=== PATIENT | male | born 1950 | race African-American/Black ===

== ENCOUNTER 2019-11-07 15:42 | Emergency (ER) | payer MEDICARE ==
[~2019-11-07] VITALS: Ht 167.6 cm; Wt 72.6 kg
[~2019-11-07 15:42] MED LIST: AMLODIPINE BESYL5 MG ORAL; ASPIR 8181 MG ORAL; DOCUSATE SODIU100 MG ORAL; GABAPENTIN400 MG ORAL; LIPITOR80 MG ORAL; QUETIAPINE FUM400 MG ORAL; SINEQUAN25 MG ORAL; TEMAZEPAM22.5 MG PO
[2019-11-07] MEDS ORDERED: BENAZEPRIL HCL10 MG ORAL (16:06)
[2019-11-07] MEDS ORDERED: OMEPRAZOLE20 M2 ORAL (16:06)
--- NOTE | 2019-11-07 16:09 | NUR ---
ED Nurse Note: pt states hes been having "dizzy spells since this morning". pt denies vomiting/diarrhea, but has had episodes of nausea
[2019-11-07 16:10] VITALS: BP 129/90
--- NOTE | 2019-11-07 16:26 | Emergency Room Report ---
History of Present Illness General Chief Complaint: Dizziness Source: Patient Present Illness HPI 69-year-old male history of hypertension, CVA in the past presents with dizziness when he tilts his head to the right, started at 4 AM, he states the room is spinning, like he is on a boat, severity is severe lasting a few seconds resolves when he is still, endorses some nausea no chest pain no shortness of breath no dyspnea on exertion no abdominal pain patient presents for evaluation Allergies: Coded Allergies: No Known Allergies (Unverified , 10/05/19) Patient History Past Medical History: see triage record Reviewed Nursing Documentation: PMH: Agreed; PSxH: Agreed Nursing Documentation-PMH Past Medical History: No History, Except For Hx Cardiac Problems: Yes Hx Hypertension: Yes Hx Asthma: No Hx COPD: No Hx Diabetes: No Hx Cancer: No Hx Gastrointestinal Problems: Yes History Of Psychiatric Problem: Yes - schizophrenic Hx Neurological Problems: No Review of Systems All Other Systems: negative except mentioned in HPI Physical Exam Vital Signs Date Time Temp Pulse Resp B/P (MAP) Pulse Ox O2 Delivery O2 Flow Rate FiO2 11/07/19 15:57 98.4 82 20 129/90 (103) 95 Room Air Sp02 EP Interpretation: reviewed, normal General Appearance: well appearing, no apparent distress, alert Head: normocephalic, atraumatic Eyes: bilateral eye PERRL, bilateral eye EOMI ENT: uvula midline, moist mucus membranes Neck: supple, thyroid normal, supple/symm/no masses Respiratory: lungs clear, no respiratory distress, no retraction, no accessory muscle use Cardiovascular #1: normal peripheral pulses, regular rate, rhythm, no edema, no gallop, no murmur Gastrointestinal: non tender, soft, no guarding, no rebound Musculoskeletal: normal inspection Neurologic: alert, motor strength/tone normal, director product III-XII nml as tested, oriented x3, cerebellar normal, speech normal, normal gait, no pronator, other - Romberg negative, finger-nose intact, fatigable nystagmus to the right, Jeff- Hallpike positive Psychiatric: mood/affect normal Skin: no rash, warm/dry Medical Decision Making Diagnostic Impression: Primary Impression: Dizziness Additional Impression: BPPV (benign paroxysmal positional vertigo) Qualified Codes: H81.11 - Benign paroxysmal vertigo, right ear ER Course 69-year-old male history of hypertension, presents with dizziness that is violent in nature aggravated with movement and position differential diagnosis includes BPV, Mnire's, stroke Cranial nerves intact, fatigable nystagmus, [place]-Hallpike positive, patient improved with meclizine additionally patient counseled on how to utilize the Alison maneuver Reevaluation 5:18 PM, dizziness has significantly improved disposition home with return precautions follow-up with PCP CT/MRI/US Diagnostic Results CT/MRI/US Diagnostic Results : Impression Procedure: CT Head no Contrast Indication: Headache Technique: Contiguous 5 mm thick transaxial imaging of the head obtained in a Siemens Sensation [address] scanner. Soft tissue and bone windows generated. Automatic Exposure Control was utilized. Total Dose length Product (DLP): 1179.[address] Dose Index Volume (CTDIvol): 53.4 mGy Comparison: none Findings: There is mild prominence of the ventricles, basal cisterns, and cerebral sulci consistent with atrophy. Mild, nonspecific, white matter hypoattenuation is noted throughout the brain consistent with chronic small vessel disease. There is no midline shift, edema, acute hemorrhage, mass effect, or abnormal extra-axial fluid collections. Bones are unremarkable. There is opacification of the ethmoid sinus left worse than right consistent with sinusitis Impression: No acute intracranial bleed, mass effect or edema. Mild atrophy of the brain. Nonspecific white matter hypoattenuation probably due to chronic small vessel disease. Sinusitis The CT scanner at [facility] is accredited by the [employer] and the scans are performed using dose optimization techniques as appropriate to a performed exam including Automatic Exposure control. Dictated By: Quinn Gutierrez MD Electronically Signed By: Quinn Gutierrez MD Signed Date/Time 11/07/19 [id number] CC: Rafal Johns MD Last Vital Signs Date Time Temp Pulse Resp B/P (MAP) Pulse Ox O2 Delivery O2 Flow Rate FiO2 11/07/19 16:10 98.4 82 20 129/90 95 Room Air Disposition: HOME, SELF-CARE Condition: Stable Scripts Meclizine Hcl* (MECLIZINE*) 25 Mg Tablet 25 MG ORAL THREE TIMES A DAY PRN for for dizziness, #21 TAB Prov: Rafal Johns MD 11/07/19 Referrals: [facility] Quinn Farris [facility]. [facility] Patient Instructions: Benign Positional Vertigo, Vertigo Additional Instructions: The patient was provided with discharge instructions, notified to follow-up with a primary care doctor and or specialist in the next 24-48 hours, and to return to the ED if they have worsening of their symptoms. Please note that this report is being documented using [employer] technology. This can lead to erroneous entry secondary to incorrect interpretation by the dictating instrument. Rafal Johns MD Nov 07, 2019 16:26
[2019-11-07] MEDS ORDERED: Meclizine 25mg tab ORAL ONE (16:30)
--- NOTE | 2019-11-07 17:00 | Diagnostic Imaging Report ---
Indication: Headache Technique: Contiguous 5 mm thick transaxial imaging of the head obtained in a Siemens Sensation [address] scanner. Soft tissue and bone windows generated. Automatic Exposure Control was utilized. Total Dose length Product (DLP): 1179.[address] Dose Index Volume (CTDIvol): 53.4 mGy Comparison: none Findings: There is mild prominence of the ventricles, basal cisterns, and cerebral sulci consistent with atrophy. Mild, nonspecific, white matter hypoattenuation is noted throughout the brain consistent with chronic small vessel disease. There is no midline shift, edema, acute hemorrhage, mass effect, or abnormal extra-axial fluid collections. Bones are unremarkable. There is opacification of the ethmoid sinus left worse than right consistent with sinusitis Impression: No acute intracranial bleed, mass effect or edema. Mild atrophy of the brain. Nonspecific white matter hypoattenuation probably due to chronic small vessel disease. Sinusitis The CT scanner at [facility] is accredited by the [employer] and the scans are performed using dose optimization techniques as appropriate to a performed exam including Automatic Exposure control.
[2019-11-07] MEDS ORDERED: MECLIZINE HCL25 MG ORAL (17:19)
[2019-11-07 17:20] VITALS: BP 124/84
--- NOTE | 2019-11-07 17:21 | NUR ---
ER DISCHARGE NOTE: Patient is cleared to be discharged per ERMD, pt is aox4, on room air, with stable vital signs. pt was given dc and prescription instructions, pt was able to verbalize understanding, pt id band removed. pt is able to ambulate with steady gait. pt took all belongings.
== END 2019-11-07 17:20 | disposition home or self-care (01) ==
LOC: EMR 17:16
DX: H81.11 Benign paroxysmal vertigo, right ear (principal); I10 Essential (primary) hypertension; R51 Headache; F20.9 Schizophrenia, unspecified; G31.9 Degenerative disease of nervous system, unspecified; J32.9 Chronic sinusitis, unspecified; Z86.73 Personal history of transient ischemic attack (TIA), and cerebral infarction without residual deficits
CPT/HCPCS: 70450; 99284

== ENCOUNTER 2020-01-29 15:35 | Emergency (ER) | payer MEDICARE ==
[~2020-01-29] VITALS: Ht 167.6 cm; Wt 72.6 kg
[~2020-01-29 15:35] MED LIST changes: +BENAZEPRIL HCL10 MG ORAL; +MECLIZINE HCL25 MG ORAL; +OMEPRAZOLE20 M2 ORAL
--- NOTE | 2020-01-29 15:55 | NUR ---
ED Nurse Note: Pt ambulated to ED from home d/t abdominal pain and no bowel movement x 7 days. Per pt, he already took miralax but ineffective. Pt is AOx4, calm and cooperative. VSS, on RA, afebrile on triage. Placed on bed and gown, ERMD at bedside. Pt denies any recent nausea, dizziness nor diarrhea.
[2020-01-29] MEDS ORDERED: Omnipaque-300 100ml vial INJ PRN (16:00)
[2020-01-29 16:16] VITALS: BP 104/49
[2020-01-29 16:28] LABS: BASOPHILS % (AUTO) 2.1 % (0.0-2.0); EOSINOPHILS % (AUTO) 5.7 % (0.0-3.0); HEMATOCRIT 42.1 % (42.0-52.0); HEMOGLOBIN 13.6 G/DL (14.2-18.0); LYMPHOCYTES % (AUTO) 37.1 % (20.0-45.0); MEAN CORPUSCULAR VOLUME 96 FL (80-99); MONOCYTES % (AUTO) 6.9 % (1.0-10.0); NEUTROPHILS % (AUTO) 48.2 % (45.0-75.0); PLATELET COUNT 185 K/UL (150-450); RED BLOOD COUNT 4.39 M/UL (4.70-6.10); RED CELL DISTRIBUTION WIDTH 12.7 % (11.6-14.8); WHITE BLOOD COUNT 4.8 K/UL (4.8-10.8)
--- NOTE | 2020-01-29 16:29 | Emergency Room Report ---
History of Present Illness General Chief Complaint: Abdominal Pain Source: Patient Present Illness HPI 69-year-old male presents for abdominal pain and distention. States he may have a bowel obstruction. Has had no bowel movement for 7 days. Took MiraLAX without effect. States he has had multiple abdominal surgeries and has had previous bowel obstructions. Pain is dull, 5 out of 10, nonradiating. Denies nausea or vomiting. Denies fevers or chills. Denies chest pain. No other aggravating relieving factors. Denies any other associated symptoms Allergies: Coded Allergies: No Known Allergies (Unverified , 10/05/19) COVID-19 Screening Contact w/high risk pt: No Recent Travel to affected area: No Experienced COVID-19 symptoms?: No Patient History Past Medical History: HTN Past Surgical History: appy, other - SBO Pertinent Family History: none Social History: Denies: smoking, alcohol use, drug use Immunizations: UTD Reviewed Nursing Documentation: PMH: Agreed; PSxH: Agreed Nursing Documentation-PMH Past Medical History: No History, Except For Hx Cardiac Problems: Yes Hx Hypertension: Yes Hx Asthma: No Hx COPD: No Hx Diabetes: No Hx Cancer: No Hx Gastrointestinal Problems: Yes - SBO, surgery Hx Neurological Problems: No Review of Systems All Other Systems: negative except mentioned in HPI Physical Exam Vital Signs Date Time Temp Pulse Resp B/P (MAP) Pulse Ox O2 Delivery O2 Flow Rate FiO2 01/29/20 15:44 99.7 113 18 104/49 (67) 97 Sp02 EP Interpretation: reviewed, normal General Appearance: no apparent distress, alert, GCS 15, non-toxic Head: normocephalic, atraumatic Eyes: bilateral eye normal inspection, bilateral eye PERRL ENT: hearing grossly normal, normal pharynx, no angioedema, normal voice Neck: full range of motion, supple/symm/no masses Respiratory: chest non-tender, lungs clear, normal breath sounds, speaking full sentences Cardiovascular #1: regular rate, rhythm, no edema Cardiovascular #2: 2+ carotid (R), 2+ carotid (L), 2+ radial (R), 2+ radial (L) , 2+ dorsalis pedis (R), 2+ dorsalis pedis (L) Gastrointestinal: normal bowel sounds, no guarding, no rebound, distended, other - surgical scar abdomen Rectal: deferred Genitourinary: normal inspection, no CVA tenderness Musculoskeletal: back normal, normal range of motion, gait/station normal, non- tender Neurologic: alert, motor strength/tone normal, oriented x3, sensory intact, responsive, speech normal Psychiatric: judgement/insight normal, memory normal, mood/affect normal, no suicidal/homicidal ideation Reflexes: 3+ bicep (R), 3+ bicep (L), 3+ tricep (R), 3+ tricep (L), 3+ knee (R) , 3+ knee (L) Skin: no rash Lymphatic: no adenopathy Medical Decision Making Diagnostic Impression: Primary Impression: Constipation Qualified Codes: K59.00 - Constipation, unspecified ER Course Hospital Course 69-year-old M presents to ED with no BM x 7 days. h/o bowel obstruction Differential diagnosis includes-appendicitis, cholecystitis, small bowel obstruction, gastritis, Clinical course Patient placed on stretcher. After initial history and physical I ordered labs , IV fluids, CT scan Labs - no leukocytosis, electrolytes ok, LFTs normal CT scan shows thickened fecal impaction, no evidence of bowel obstruction. Ileus versus enteritis I discussed findings with patient. Vitals stable. Labs unremarkable. Resting comfortably. No vomiting. Tolerating p.o. intake. Safe for discharge for close outpatient follow-up. States he has a PMD I feel this is a highly complex case requiring extensive working including EKG/ Rhythm strip, Xray/CT/US, Blood/urine lab work, repeat exams while in ED, and administration of strong opiates/narcotics for pain control, admission to hospital or close patient follow up. Diagnosis - constipation Stable and discharged to home with Rx Colace, Enema, Mag Citrate. Followup with PMD. Return to ED if symptoms recur or worsen Labs Test 01/29/20 16:00 01/29/20 16:50 White Blood Count 4.8 K/UL (4.8-10.8) Red Blood Count 4.39 M/UL (4.70-6.10) Hemoglobin 13.6 G/DL (14.2-18.0) Hematocrit 42.1 % (42.0-52.0) Mean Corpuscular Volume 96 FL (80-99) Mean Corpuscular Hemoglobin 31.0 PG (27.0-31.0) Mean Corpuscular Hemoglobin Concent 32.3 G/DL (32.0-36.0) Red Cell Distribution Width 12.7 % (11.6-14.8) Platelet Count 185 K/UL (150-450) Mean Platelet Volume 7.7 FL (6.5-10.1) Neutrophils (%) (Auto) 48.2 % (45.0-75.0) Lymphocytes (%) (Auto) 37.1 % (20.0-45.0) Monocytes (%) (Auto) 6.9 % (1.0-10.0) Eosinophils (%) (Auto) 5.7 % (0.0-3.0) Basophils (%) (Auto) 2.1 % (0.0-2.0) Prothrombin Time 10.3 SEC (9.30-11.50) Prothromb Time International Ratio 1.0 (0.9-1.1) Activated Partial Thromboplast Time 26 SEC (23-33) Sodium Level 139 MMOL/L (136-145) Potassium Level 4.2 MMOL/L (3.5-5.1) Chloride Level 103 MMOL/L (98-107) Carbon Dioxide Level 27 MMOL/L (21-32) Anion Gap 9 mmol/L (5-15) Blood Urea Nitrogen 12 mg/dL (7-18) Creatinine 1.1 MG/DL (0.55-1.30) Estimat Glomerular Filtration Rate > 60 mL/min (>60) Glucose Level 100 MG/DL (74-106) Calcium Level 9.1 MG/DL (8.5-10.1) Total Bilirubin 0.4 MG/DL (0.2-1.0) Aspartate Amino Transf (AST/SGOT) 32 U/L (15-37) Alanine Aminotransferase (ALT/SGPT) 30 U/L (12-78) Alkaline Phosphatase 113 U/L (46-116) Total Protein 6.8 G/DL (6.4-8.2) Albumin 3.8 G/DL (3.4-5.0) Globulin 3.0 g/dL Albumin/Globulin Ratio 1.3 (1.0-2.7) Lipase 101 U/L (73-393) Urine Color Pale yellow Urine Appearance Clear Urine pH 6 (4.5-8.0) Urine Specific [place] 1.010 (1.005-1.035) Urine Protein Negative (NEGATIVE) Urine Glucose (UA) Negative (NEGATIVE) Urine Ketones Negative (NEGATIVE) Urine Blood 3+ (NEGATIVE) Urine Nitrite Negative (NEGATIVE) Urine Bilirubin Negative (NEGATIVE) Urine Urobilinogen Normal MG/DL (0.0-1.0) Urine Leukocyte Esterase 2+ (NEGATIVE) Urine RBC 2-4 /HPF (0 - 0) Urine WBC 0-2 /HPF (0 - 0) Urine Squamous Epithelial Cells None /LPF (NONE/OCC) Urine Bacteria None /HPF (NONE) CT/MRI/US Diagnostic Results CT/MRI/US Diagnostic Results : Imaging Test Ordered: CT A/P Impression FINDINGS: Lung bases: Mild dependent atelectasis bilaterally. Heart: Borderline size of the heart. Mediastinum: Small hiatal hernia. Mild prominence of the wall of the distal esophagus may represent esophagitis. ABDOMEN: Liver: Small hypodensities in the liver are too small to definitively characterize. Gallbladder and bile ducts: Unremarkable. No calcified stones. No ductal dilation. Pancreas: Unremarkable. No mass. No ductal dilation. Spleen: Unremarkable. No splenomegaly. Adrenals: Mild nonspecific thickening of the left adrenal gland. Kidneys and ureters: Nonspecific bilateral perinephric fat stranding. Small hypodensities in the kidneys likely represent cysts. No hydronephrosis or obstructing stone. Stomach and bowel: Large amount of stool in the colon may represent constipation. Evaluation of the stomach is limited by underdistention. Hyperdense heterogeneous material in the proximal stomach is nonspecific and may represent ingested material versus blood products. Please correlate clinically. Mildly prominent fluid and gas-filled small bowel loops are nonspecific but may represent enteritis or ileus in the appropriate clinical setting. PELVIS: Appendix: No findings to suggest acute appendicitis. Bladder: Distended bladder. No significant bladder wall thickening or stone. Reproductive: Mild prostatomegaly. ABDOMEN and PELVIS: Intraperitoneal space: Unremarkable. No free air. No significant fluid collection. Bones/joints: Degenerative changes of the spine. Postsurgical changes at L2-3. No acute fracture. No dislocation. Soft tissues: Unremarkable. Vasculature: Mild atherosclerotic changes of the vasculature. No aortic aneurysm or dissection. Lymph nodes: Unremarkable. No enlarged lymph nodes. IMPRESSION: 1. Large amount of stool in the colon may represent constipation. 2. Evaluation of the stomach is limited by underdistention. Hyperdense heterogeneous material in the proximal stomach is nonspecific and may represent ingested material versus blood products. Please correlate clinically. 3. Mildly prominent fluid and gas-filled small bowel loops are nonspecific but may represent enteritis or ileus in the appropriate clinical setting. Last Vital Signs Date Time Temp Pulse Resp B/P (MAP) Pulse Ox O2 Delivery O2 Flow Rate FiO2 01/29/20 16:16 99.7 18 104/49 97 01/29/20 16:16 105 Status: improved Disposition: HOME, SELF-CARE Condition: Stable Scripts Na Phos,M-B/Na Phos,Di-Ba* (FLEET ENEMA*) 133 Ml Enema 133 ML RECTAL DAILY, #133 ML 0 Refills Prov: Randolph Sykes MD 01/29/20 Magnesium Citrate (CITRATE OF MAGNESIA) 296 Ml Solution 150 ML PO DAILY for 2 Days, #296 ML Prov: Randolph Sykes MD 01/29/20 Docusate Sodium* (COLACE*) 100 Mg Capsule 100 MG ORAL THREE TIMES A DAY, #30 CAP Prov: Randolph Sykes MD 01/29/20 Referrals: NON PHYSICIAN (PCP) Randolph Sykes MD January 29, 2020 16:29
[2020-01-29 16:33] LABS: ANION GAP 9 mmol/L (5-15); BLOOD UREA NITROGEN 12 mg/dL (7-18); CALCIUM 9.1 MG/DL (8.5-10.1); CARBON DIOXIDE 27 MMOL/L (21-32); CHLORIDE 103 MMOL/L (98-107); CREATININE 1.1 MG/DL (0.55-1.30); POTASSIUM 4.2 MMOL/L (3.5-5.1); SODIUM 139 MMOL/L (136-145)
[2020-01-29 16:37] LABS: ALANINE AMINOTRANSFERASE 30 U/L (12-78); ALBUMIN 3.8 G/DL (3.4-5.0); ALBUMIN/GLOBULIN RATIO 1.3 (1.0-2.7); ALKALINE PHOSPHATASE 113 U/L (46-116); ASPARTATE AMINO TRANSFERASE 32 U/L (15-37); BILIRUBIN,TOTAL 0.4 MG/DL (0.2-1.0)
--- NOTE | 2020-01-29 16:55 | NUR ---
ED Nurse Note: pt went on CT accompanied by tech
[2020-01-29 17:00] LABS: APPEARANCE,URINE CLEAR; BILIRUBIN, URINE NEGATIVE (NEGATIVE); COLOR,URINE PALE YELLOW; GLUCOSE, URINE (UA) NEGATIVE (NEGATIVE); KETONES,URINE NEGATIVE (NEGATIVE); LEUKOCYTE ESTERASE ,URINE 2+ (NEGATIVE); NITRITE,URINE NEGATIVE (NEGATIVE); PH,URINE 6 (4.5-8.0); PROTEIN,URINE NEGATIVE (NEGATIVE); UROBILINOGEN,URINE NORMAL MG/DL (0.0-1.0)
--- NOTE | 2020-01-29 17:45 | Diagnostic Imaging Report ---
EXAM: CT Abdomen and Pelvis With Intravenous Contrast CLINICAL HISTORY: ABD PAIN TECHNIQUE: Axial computed tomography images of the abdomen and pelvis with intravenous contrast. CTDI is 4.7 mGy and DLP is 245.1 mGy-cm. One or more of the following dose reduction techniques were used: automated exposure control, adjustment of the mA and/or kV according to patient size, use of iterative reconstruction technique. COMPARISON: None FINDINGS: Lung bases: Mild dependent atelectasis bilaterally. Heart: Borderline size of the heart. Mediastinum: Small hiatal hernia. Mild prominence of the wall of the distal esophagus may represent esophagitis. ABDOMEN: Liver: Small hypodensities in the liver are too small to definitively characterize. Gallbladder and bile ducts: Unremarkable. No calcified stones. No ductal dilation. Pancreas: Unremarkable. No mass. No ductal dilation. Spleen: Unremarkable. No splenomegaly. Adrenals: Mild nonspecific thickening of the left adrenal gland. Kidneys and ureters: Nonspecific bilateral perinephric fat stranding. Small hypodensities in the kidneys likely represent cysts. No hydronephrosis or obstructing stone. Stomach and bowel: Large amount of stool in the colon may represent constipation. Evaluation of the stomach is limited by underdistention. Hyperdense heterogeneous material in the proximal stomach is nonspecific and may represent ingested material versus blood products. Please correlate clinically. Mildly prominent fluid and gas-filled small bowel loops are nonspecific but may represent enteritis or ileus in the appropriate clinical setting. PELVIS: Appendix: No findings to suggest acute appendicitis. Bladder: Distended bladder. No significant bladder wall thickening or stone. Reproductive: Mild prostatomegaly. ABDOMEN and PELVIS: Intraperitoneal space: Unremarkable. No free air. No significant fluid collection. Bones/joints: Degenerative changes of the spine. Postsurgical changes at L2-3. No acute fracture. No dislocation. Soft tissues: Unremarkable. Vasculature: Mild atherosclerotic changes of the vasculature. No aortic aneurysm or dissection. Lymph nodes: Unremarkable. No enlarged lymph nodes. IMPRESSION: 1. Large amount of stool in the colon may represent constipation. 2. Evaluation of the stomach is limited by underdistention. Hyperdense heterogeneous material in the proximal stomach is nonspecific and may represent ingested material versus blood products. Please correlate clinically. 3. Mildly prominent fluid and gas-filled small bowel loops are nonspecific but may represent enteritis or ileus in the appropriate clinical setting.
[2020-01-29] MEDS ORDERED: COLACE100 MG ORAL (18:02)
[2020-01-29] MEDS ORDERED: CITRATE OF MAG296 ML PO (18:02)
[2020-01-29] MEDS ORDERED: FLEET ENEMA133 ML RECTAL (18:02)
[2020-01-29 18:07] VITALS: BP 104/49
--- NOTE | 2020-01-29 18:07 | NUR ---
ER DISCHARGE NOTE: Pt is cleared to be discharged per ERMD, pt is aox4, on room air, with stable vital signs. pt was given dc and prescription instructions, pt was able to verbalize understanding, pt id band and iv site removed without complications. pt is able to ambulate with steady gait. pt took all belongings.
== END 2020-01-29 18:07 | disposition home or self-care (01) ==
LOC: EMR 16:15
DX: K59.00 Constipation, unspecified (principal); I10 Essential (primary) hypertension; Z90.89 Acquired absence of other organs; N40.0 Benign prostatic hyperplasia without lower urinary tract symptoms
CPT/HCPCS: 36415; 74177; 80053; 81003; 83690; 85025; 85610; 85730; 86850; 86900; 86901; 96360; 99284; J7030; Q9967